=== PATIENT | male | born 1955 | race Caucasian/White ===

== ENCOUNTER 2021-08-21 05:52 | Inpatient (IN) | payer MEDICARE, OTHER, SELFPAY ==
[2021-08-21] VITALS (18 sets, daily range): BP systolic 103–133; BP diastolic 62–83; PULSE 88–120; RESP 18–36; TEMP 35.8–37.2; O2SAT 2–96; BMI 24.3; BMI 23.1
--- NOTE | 2021-08-21 05:48 | ECG_ITS ---
APPROVED REPORT Exam: Resting ECG HR:126 bpm ECG Measurements Heart Rate 126 AXES OH 122 P 67 QRSd 86 QRS 41 QT 320 T 71 QTc 463 Conclusion Sinus tachycardia Right atrial enlargement Borderline ECG Electronically signed by : Getachew Ocasio MD 08/22/2021 21:22:14
--- NOTE | 2021-08-21 05:55 | XR_ITS ---
PROCEDURE INFORMATION: Exam: XR Chest Exam date and time: 08/21/2021 5:55 AM Age: 66 years old Clinical indication: Angina and cough; Additional info: Chest pain TECHNIQUE: Imaging protocol: XR of the chest. Views: 2 views. COMPARISON: CT ANGIO CHEST PE PROTOCOL 08/21/2021 6:52 AM FINDINGS: Lungs: Patchy bilateral airspace opacities. Pleural spaces: No definite pleural effusion or pneumothorax. Heart/Mediastinum: Cardiomediastinal silhouette is within normal limits. Bones/joints: Unremarkable. IMPRESSION: Findings are compatible with multilobar pneumonia.
--- NOTE | 2021-08-21 05:56 | HMH.EDGENADL ---
ED Disposition Clinical Impression: COVID-19 Disposition: Admitted As Inpatient Condition on Discharge: Serious Instructions: DI for COVID-19 (Suspected or Confirmed ), Preventing the Spread of Coronavirus Discharge Instructions Additional Instructions: You have been evaluated for chest pain and pain with inspiration. Found to have COVID-19. Take Tylenol for pain and fever. Follow-up with your primary care doctor. They may be able to refer you for an antibody infusion. Return to the emergency department for new or worsening symptoms, difficulty breathing or other concerns. Referrals: Luis Alberto Castro [Primary Care Provider] - Time of Disposition: 07:59 - Critical Care Critical Care Time: No Attestation: On , the high probability of a clinically significant, sudden or life threatening deterioration of the following system(s) required my full and direct attention, intervention and personal management. The time I documented below is in addition to time spent performing reported procedures but includes the following listed in this critical care notation. Medical Decision Making - Medical Records Medical records reviewed: Yes: I reviewed the patient's medical records. - Scott Inquiry Pt receiving controlled substance: No Vital Signs: 08/21/21 05:52 Temperature 97.9 F Temperature Source Oral Pulse Rate [Right Radial] 120 H Respiratory Rate 21 Blood Pressure [Right Arm] 133/83 Blood Pressure Mean [Right Arm] 99 Blood Pressure Source [Right Arm] Automatic Cuff Blood Pressure Position [Right Arm] Sitting 02 Sat by Pulse Oximetry 92 L Oxygen Delivery Method Nasal Cannula Oxygen Flow Rate (LPM) 2 - Lab Data Lab Results 08/21/21 05:17: WBC 17.1 H, RBC 5.09, Hgb 16.8, Hct 49.1, MCV 96.5 H, MCH 32.9 H, MCHC 34.1, RDW 15.3, Plt Count 89 L, MPV 10.1, Neut % (Auto) 90.6 H, Lymph % (Auto) 5.0 L, [place] % (Auto) 4.1, Eos % (Auto) 0.0 L, Baso % (Auto) 0.3, Neut # (Auto) 15.5 H, Lymph # (Auto) 0.9, [place] # (Auto) 0.7, Eos # (Auto) 0.0, Baso # (Auto) 0.1, Total Counted 100, Neutrophils % (Manual) 81 H, Band Neutrophils % 14.0 H, Lymphocytes % (Manual) 5 L, Platelet Estimate Slight decrease, RBC Morphology Normal, Rouleaux 2+ 08/21/21 05:17: D-Dimer 1.41 H 08/21/21 05:17: Sodium 124 L, Potassium 4.2, Chloride 92 L, Carbon Dioxide 20 L, Anion Gap 16.2 H, BUN 18, Creatinine 0.50 L, Estimated Creat Clear 75, Estimated GFR 166, Est GFR ( Amer) 201, Glucose 149 H, Calcium 8.4, Troponin I 0.01 08/21/21 07:25: SARS-CoV-2 (PCR) Detected A, Influenza A Untype (PCR) Not detected, Influenza Type B (PCR) Not detected Result diagrams: 08/21/21 05:17 08/21/21 05:17 Orders (Tests/Meds): ED MEDICATIONS Discontinued Medications Generic Name Dose Route Start Last Admin Trade Name Freq PRN Reason Stop Dose Admin Dexamethasone Sodium Phosphate 8 mg 08/21/21 08:07 Dexamethasone 4mg/Ml 1ml Vial IV 08/21/21 08:08 ONCE ONE Sodium Chloride 1,000 mls @ 999 mls/hr 08/21/21 06:45 08/21/21 07:28 Sod Chlor 0.9% 1000ml Bag IV 08/21/21 07:45 999 mls/hr .Q1H1M SCOTT Administration Iopamidol 70 ml 08/21/21 07:31 08/21/21 07:33 Iopamidol-370 (76%);100ml Bottle IV 08/21/21 07:32 70 ml ONCE ONE Administration Sodium Chloride 50 ml 08/21/21 07:31 08/21/21 07:32 0.9 % Sodium Chloride 50 Ml Vial IV 08/21/21 07:32 50 ml ONCE ONE Administration Sodium Chloride 10 ml 08/21/21 07:31 08/21/21 07:33 Sodium Chloride 0.9% 10ml Syr (Rad Only) IV 08/21/21 07:32 10 ml ONCE ONE Administration ORDERS Category Date Time Status CT angio chest PE protocol Stat Cat Scan 08/21/21 06:20 Taken XR chest 2V Stat Exams 08/21/21 05:55 Taken Troponin I Q3H Lab 08/21/21 09:00 Ordered Troponin I Q3H Lab 08/21/21 12:00 Ordered - ECG Data Tracing #1 Sinus tachycardia with ventricular rate of 126 bpm. QRS 86, QTc 463. No ST segment elevation. No arrhythmia. Medical Decision Narrativ
[2021-08-21 06:04] LABS: Basophils # 0.1 K/mm3 (0-0.2); Basophils % 0.3 % (0.1-2.0); Hematocrit 49.1 % (42.0-52.0); Hemoglobin 16.8 g/dL (14.1-18.0); Lymphocytes # 0.9 K/mm3 (0.7-4.5); Mean Corpuscular HGB Conc 34.1 g/dL (31.8-35.4); Mean Corpuscular Hemoglobin 32.9 pg (27.0-31.2); Mean Corpuscular Volume 96.5 fl (80-94); Mean Platelet Volume 10.1 fl (7.4-10.4); Monocytes # 0.7 K/mm3 (0.1-1.0); Monocytes % 4.1 % (1.7-9.3); Neutrophils # 15.5 K/mm3 (1.8-7.8); Neutrophils % 90.6 % (37.0-80.0); Platelet Count 89 K/mm3 (142-424); Red Blood Count 5.09 M/mm3 (4.60-6.20); Red Cell Distribution Width 15.3 % (11.5-17.5); White Blood Count 17.1 K/mm3 (4.8-10.8)
[2021-08-21 06:06] LABS: Chloride 92 mmol/L (98-107)
[2021-08-21 06:07] LABS: Potassium 4.2 mmoL/L (3.5-5.1); Sodium 124 mmol/L (136-145)
[2021-08-21 06:09] LABS: Blood Urea Nitrogen 18 mg/dl (9-20); Creatinine Clearance Estimated 75 mL/min (50-200); Estimated Glomerular Filt Rate 166 ml/min (>60)
[2021-08-21 06:10] LABS: Anion Gap 16.2 mEq/L (5-15); Calcium 8.4 mg/dl (8.4-10.2); Carbon Dioxide 20 mmol/L (22.0-30.0); GFR (African American) 201 ML/MIN (>60); Glucose 149 mg/dl (74-100)
[2021-08-21 06:14] LABS: MANUAL DIFFERENTIAL MANUAL DIFFERENTIAL (MANUAL DIFF)
[2021-08-21 06:15] LABS: D-Dimer 1.41 ug/mL (0.0-0.5)
[2021-08-21 06:20] LABS: Lymphocytes % 5 % (10-50); Neutrophils % 81 % (42-76); Platelet Estimate Slight Decrease; RBC Morphology Normal; Rouleaux 2+; Total Cells Counted 100
--- NOTE | 2021-08-21 06:20 | CT_ITS ---
PROCEDURE INFORMATION: Exam: CTA Chest With Contrast Exam date and time: 08/21/2021 6:20 AM Age: 66 years old Clinical indication: Abnormal findings; Abnormal diagnostic tests; Elevated d-dimer; Angina and cough; Additional info: Chest pain, elevated d-dimer TECHNIQUE: Imaging protocol: Computed tomographic angiography of the chest with contrast. 3D rendering (Not supervised by radiologist): MIP and/or 3D reconstructed images were created by the technologist. Radiation optimization: All CT scans at this facility use at least one of these dose optimization techniques: automated exposure control; mA and/or kV adjustment per patient size (includes targeted exams where dose is matched to clinical indication); or iterative reconstruction. Contrast material: ISO 370; Contrast volume: 70 ml; Contrast route: INTRAVENOUS (IV); COMPARISON: No relevant prior studies available. FINDINGS: Pulmonary arteries: No pulmonary emboli identified. Aorta: Unremarkable. No aortic aneurysm. No aortic dissection. Other arteries: Coronary artery calcification. Lungs: Scattered ground-glass and consolidative airspace opacities, most confluent in the lower lobes. Pleural spaces: Unremarkable. No pneumothorax. No pleural effusion. Heart: Unremarkable. No cardiomegaly. No pericardial effusion. Lymph nodes: Mildly prominent mediastinal lymph nodes are likely reactive. Liver: Nodular surface contour of the liver. Subcentimeter hypodensity is seen in segment 5. Spleen: Splenomegaly. Intraperitoneal space: Collateral vessels are seen in the upper abdomen. Bones/joints: Unremarkable. No acute fracture. Soft tissues: Unremarkable. IMPRESSION: 1. No pulmonary emboli identified. 2. Findings are most consistent with multilobar pneumonia. 3. Findings suggest cirrhosis with portal hypertension in the partially visualized upper abdomen. A subcentimeter low-density lesion in hepatic segment 5 is incompletely characterized. Consider further evaluation with nonemergent liver MRI.
[2021-08-21 06:26] LABS: Troponin I 0.01 ng/ml (0.00-0.034)
[2021-08-21 07:34] LABS: Influenza A, PCR Not Detected (NotDetected); Influenza B, PCR Not Detected (NotDetected)
[2021-08-21 07:55] LABS: Coronavirus 19, PCR Detected (NotDetected)
--- NOTE | 2021-08-21 09:11 | PC.NURSE ---
Dr London speaking with Dr Trevino
--- NOTE | 2021-08-21 09:43 | PC.NURSE ---
attempted to call report
--- NOTE | 2021-08-21 09:58 | PC.NURSE ---
report called to floor
--- NOTE | 2021-08-21 10:10 | HMH.PHAINT ---
MEDICATION RECONCILIATION COMPLETED ON PATIENT USING EXTERNAL FILL HISTORY FROM PHARMACY. -EB HANNAH, LENAD
--- NOTE | 2021-08-21 11:57 | PC.NURSE ---
pt noted to have stable vs. stays around 92% on RA and is 94-95% on 2lnc. states he has been soa for over a week. Reports okay appetite but gets winded easily. states he lives alone and is retired. Denies any drug or etoh abuse. independentwith adls but has generalized weakness.
[2021-08-21 12:10] LABS: Chloride 97 mmol/L (98-107); Potassium 4.1 mmoL/L (3.5-5.1); Sodium 126 mmol/L (136-145)
[2021-08-21 12:13] LABS: Alanine Aminotransferase 39 U/L (12-78); Albumin Level 2.4 g/dl (3.5-5.0); Albumin/Globulin Ratio 0.6 (1.1-1.8); Alkaline Phosphatase 131 U/L (38-126); Anion Gap 11.1 mEq/L (5-15); Aspartate Amino Transferase 97 U/L (17-59); Bilirubin,Total 4.8 mg/dl (0.2-1.3); Blood Urea Nitrogen 18 mg/dl (9-20); Calcium 7.8 mg/dl (8.4-10.2); Carbon Dioxide 22 mmol/L (22.0-30.0); Creatinine Clearance Estimated 71 mL/min (50-200); Estimated Glomerular Filt Rate 166 ml/min (>60); GFR (African American) 201 ML/MIN (>60); Globulin 4.2 g/dL (1.3-3.2); Glucose 111 mg/dl (74-100); Total Protein,Serum 6.6 g/dl (6.3-8.2)
[2021-08-21 12:17] LABS: C-Reactive Protein 124.5 mg/L (0-4)
--- NOTE | 2021-08-21 13:26 | HMH.HP ---
*Admission Date: 08/21/21 *Chief complaint: Left-sided chest pain *History of present illness: 66-year-old male presented to the emergency department via EMS over concerns of left-sided chest pain at home very early this morning. Patient admits he was afraid he was having a heart attack. He presented to the ER and underwent work-up with evidence of viral pneumonia on chest CT scan raising suspicion for COVID-19 pneumonia. Patient admits to a few days of URI symptoms such as sore throat and altered taste. He denies fevers, chills, body aches. SARS-CoV-2 testing was positive. Patient had room air sats in the low 90s at rest and with ambulation with decreased to the 70s. He was described as having tachypnea in the emergency department and decision was made to admit him for observation and supplemental oxygen support. Since admission patient has been started on Remdesivir. Due to elevated white blood cell count he was also been started on Rocephin and azithromycin to cover the possibility of bacterial pneumonia. [facility] History I have reviewed the patient's past medical history: Yes Medical History: Reports:: Diabetes Mellitus Type 2 Denies:: Cancer, Hepatitis, MRSA *Have you ever received a pneumonia vaccine?: Yes *Have you received a flu vaccine this season?: Yes Other Medical History: Denies: Liver Disease Comment:: Patient denies alcoholism or pre-existing liver disease Other Surgeries: Yes: No Previous Surgery Amputation: No - *Social History Last grade of school completed: 7th or 8th Smoking Status: Current every day smoker Tobacco Type: cigarettes # Packs/Day (cigarettes): 1 Alcohol Intake: never *Occupational Status:: retired Household Members: none *Travel in the last 8 weeks: None Family Hx:: Diabetes, Heart Attack Review of Systems - Review of Systems Review of systems:: pertinent systems reviewed and negative unless documented below - *Neurologic Denies headache(s), Denies weakness Meds Home Medications Medication Instructions Recorded Confirmed Type Ergocalciferol (Vitamin D2) 50,000 unit PO WEEKLY 08/21/21 08/21/21 History [Vitamin D2] Insulin Degludec [Tresiba 40 units SQ HS 08/21/21 08/21/21 History Flextouch U-100] Metformin HCl [Metformin 1000mg 1,000 mg PO BIDWMEAL 08/21/21 08/21/21 History Tablets] Pioglitazone HCl [Actos] 30 mg PO DAILY 08/21/21 08/21/21 History lisinopriL [Zestril 20mg tab] 20 mg PO DAILY 08/21/21 08/21/21 History Allergies Allergy/AdvReac Type Severity Reaction Status Date / Time Penicillins Allergy Verified 08/21/21 05:59 Exam Vital signs and Labs for Last 24 Hours: Temp Pulse Resp BP Pulse Ox 98.3 F 88 18 123/67 2 L 08/21/21 12:00 08/21/21 12:00 08/21/21 12:00 08/21/21 12:00 08/21/21 12:00 Laboratory Results - last 24 hr 08/21/21 05:17: WBC 17.1 H, RBC 5.09, Hgb 16.8, Hct 49.1, MCV 96.5 H, MCH 32.9 H, MCHC 34.1, RDW 15.3, Plt Count 89 L, MPV 10.1, Neut % (Auto) 90.6 H, Lymph % (Auto) 5.0 L, [place] % (Auto) 4.1, Eos % (Auto) 0.0 L, Baso % (Auto) 0.3, Neut # (Auto) 15.5 H, Lymph # (Auto) 0.9, [place] # (Auto) 0.7, Eos # (Auto) 0.0, Baso # (Auto) 0.1, Total Counted 100, Neutrophils % (Manual) 81 H, Band Neutrophils % 14.0 H, Lymphocytes % (Manual) 5 L, Platelet Estimate Slight decrease, RBC Morphology Normal, Rouleaux 2+ 08/21/21 05:17: D-Dimer 1.41 H 08/21/21 05:17: Sodium 124 L, Potassium 4.2, Chloride 92 L, Carbon Dioxide 20 L, Anion Gap 16.2 H, BUN 18, Creatinine 0.50 L, Estimated Creat Clear 75, Estimated GFR 166, Est GFR ( Amer) 201, Glucose 149 H, Calcium 8.4, Troponin I 0.01 08/21/21 07:25: SARS-CoV-2 (PCR) Detected A, Influenza A Untype (PCR) Not detected, Influenza Type B (PCR) Not detected 08/21/21 12:00: Sodium 126 L, Potassium 4.1, Chloride 97 L, Carbon Dioxide 22, Anion Gap 11.1, BUN 18, Creatinine 0.50 L, Estimated Creat Clear 71, Estimated GFR 166, Est GFR ( Amer) 201, Glucose 111 H D, Calcium 7.8 L, Total Bilirubin 4.8
--- NOTE | 2021-08-21 14:53 | PC.NURSE ---
pt got up to bathroomindependently ad washed himself off. He tolerated it well. Generalized weakness noted but overall steady gait
--- NOTE | 2021-08-21 16:07 | PC.NURSE ---
Received report from PRAKASH Vallejo at this time on pt.
--- NOTE | 2021-08-21 19:02 | PC.NURSE ---
No acute changes with pt this afternoon. CB in reach.
[2021-08-21 20:46] LABS: POC Glucose,Bedside 198 (70-110)
[2021-08-22] VITALS (10 sets, daily range): BP systolic 107–149; BP diastolic 62–85; PULSE 71–104; RESP 18–28; TEMP 36–36.8; O2SAT 89–96; BMI 23.5; BMI 23.3
--- NOTE | 2021-08-22 03:19 | PC.NURSE ---
No acute changes t/o shift. Pt remains on 2L-NC with O2 saturation >90%. Pt denies pain t/o shift. Pt has been using the urinal and bedside commode independently. VSS, call light within reach, will continue to monitor.
--- NOTE | 2021-08-22 06:47 | HMH.ACPN2 ---
Internal Medicine - PN: Subj *Date: 08/22/21 *Time: 06:47 Interval history: No acute events overnight. O2 sats are stable on 2 L. Patient reports improvement in appetite Exam Vital signs and Labs for Last 24 Hours: Temp Pulse Resp BP Pulse Ox 98.2 F 85 20 120/70 92 L 08/22/21 04:00 08/22/21 04:00 08/22/21 04:00 08/22/21 04:00 08/22/21 04:00 Laboratory Results - last 24 hr 08/21/21 07:25: SARS-CoV-2 (PCR) Detected A, Influenza A Untype (PCR) Not detected, Influenza Type B (PCR) Not detected 08/21/21 12:00: Sodium 126 L, Potassium 4.1, Chloride 97 L, Carbon Dioxide 22, Anion Gap 11.1, BUN 18, Creatinine 0.50 L, Estimated Creat Clear 71, Estimated GFR 166, Est GFR ( Amer) 201, Glucose 111 H D, Calcium 7.8 L, Total Bilirubin 4.8 H, AST 97 H, ALT 39, Alkaline Phosphatase 131 H, Total Protein 6.6, Albumin 2.4 L, Globulin 4.2 H, Albumin/Globulin Ratio 0.6 L 08/21/21 12:00: C-Reactive Protein 124.5 H 08/21/21 20:32: POC Glucose 198 H I & O for Last 24 hours: Intake & Output 08/19/21 08/20/21 08/21/21 08/22/21 11:59 11:59 11:59 11:59 Output Total 300 / 300 Balance -300 / -300 Weight 152 lb 2 oz 155 lb Narrative: Patient is more awake and alert than yesterday. Lungs have rhonchi and rales. Heart has a regular rate and rhythm. Abdomen is soft, nontender, nondistended Assessment and Plan (1) Viral pneumonia Status: Acute Category: Medical Code(s): J12.9 - Viral pneumonia, unspecified (2) Diabetes mellitus type 2 in nonobese Status: Acute Category: Medical Code(s): E11.9 - Type 2 diabetes mellitus without complications (3) COVID-19 Status: Acute Category: Medical Code(s): U07.1 - COVID-19 (4) Cigarette smoker Status: Acute Category: Social Hx Code(s): F17.210 - Nicotine dependence, cigarettes, uncomplicated (5) Hyponatremia Status: Acute Category: Medical Code(s): E87.1 - Hypo-osmolality and hyponatremia (6) Thrombocytopenia Status: Acute Category: Medical Code(s): D69.6 - Thrombocytopenia, unspecified - Assessment and plan all Dx Assessment and Plan for all problems:: 1. Continue Remdesivir dexamethasone for COVID-19 pneumonia with respiratory failure 2. Continue Levaquin with repeat CBC this morning 3. Monitor hypoxia closely. If patient remains stable on 2 to 3 L over the next 24 hours consideration will be given to discharge home with close outpatient follow-up
[2021-08-22 06:54] LABS: Basophils % 0.3 % (0.1-2.0); Hematocrit 41.5 % (42.0-52.0); Hemoglobin 14.3 g/dL (14.1-18.0); Lymphocytes # 0.4 K/mm3 (0.7-4.5); Lymphocytes % 5.2 % (10-50); Mean Corpuscular HGB Conc 34.5 g/dL (31.8-35.4); Mean Corpuscular Volume 95.5 fl (80-94); Mean Platelet Volume 8.4 fl (7.4-10.4); Monocytes # 0.4 K/mm3 (0.1-1.0); Monocytes % 4.9 % (1.7-9.3); Neutrophils # 7.3 K/mm3 (1.8-7.8); Neutrophils % 89.6 % (37.0-80.0); Platelet Count 77 K/mm3 (142-424); Red Blood Count 4.35 M/mm3 (4.60-6.20); Red Cell Distribution Width 15.2 % (11.5-17.5); White Blood Count 8.2 K/mm3 (4.8-10.8)
[2021-08-22 07:01] LABS: MANUAL DIFFERENTIAL MANUAL DIFFERENTIAL (MANUAL DIFF)
[2021-08-22 07:17] LABS: Alanine Aminotransferase 34 U/L (12-78); Albumin Level 2.2 g/dl (3.5-5.0); Albumin/Globulin Ratio 0.6 (1.1-1.8); Alkaline Phosphatase 122 U/L (38-126); Anion Gap 9.1 mEq/L (5-15); Aspartate Amino Transferase 81 U/L (17-59); Bilirubin,Total 3.5 mg/dl (0.2-1.3); Blood Urea Nitrogen 18 mg/dl (9-20); Calcium 7.9 mg/dl (8.4-10.2); Carbon Dioxide 23 mmol/L (22.0-30.0); Chloride 101 mmol/L (98-107); Creatinine Clearance Estimated 72 mL/min (50-200); Estimated Glomerular Filt Rate 215 ml/min (>60); GFR (African American) 260 ML/MIN (>60); Glucose 144 mg/dl (74-100); Potassium 4.1 mmoL/L (3.5-5.1); Sodium 129 mmol/L (136-145); Total Protein,Serum 6.2 g/dl (6.3-8.2)
[2021-08-22 07:32] LABS: C-Reactive Protein 124.4 mg/L (0-4)
[2021-08-22 10:31] LABS: Anisocytosis 1+; Hypochromasia 1+; Lymphocytes % 4 % (10-50); Macrocytosis 1+; Monocytes % 5 % (2-9); Neutrophils % 91 % (42-76); Platelet Estimate Normal; Total Cells Counted 100
--- NOTE | 2021-08-22 11:39 | P.CONPHA_ITS ---
[facility] Pharmacy VTE Monitoring - Patient Demographics Admission date: 08/21/21 Report Date: 08/22/21 Time: 11:39 Allergies/Adverse Reactions: Patient Allergies Penicillins Allergy (Verified 08/21/21 05:59) Height: 1.73 m Weight: 70.307 kg Patient Problems: Current Active Problems COVID-19 (Acute) Viral pneumonia (Acute) Diabetes mellitus type 2 in nonobese (Acute) Cigarette smoker (Acute) Hyponatremia (Acute) Thrombocytopenia (Acute) - VTE Risk Labs: VTE Related Lab Results Hgb 14.3 g/dL (14.1-18.0) 08/22/21 06:32 Hct 41.5 % (42.0-52.0) L 08/22/21 06:32 Plt Count 77 K/mm3 (142-424) L 08/22/21 06:32 BUN 18 mg/dl (9-20) 08/22/21 06:32 Creatinine 0.40 mg/dl (0.66-1.25) L 08/22/21 06:32 Estimated Creat Clear 72 mL/min (50-200) 08/22/21 06:32 Was VTE Risk Assessment Performed: No VTE Risk Level: Low Risk - Prophylaxis VTE Prophylaxis Ordered?: Yes Types of VTE Prophylaxis: TEDS Thigh High, Pharmacological Location of Applied Device: Bilateral Lower Extremeties Pharmacologic Type: Other (XARELTO)
[2021-08-22 11:57] LABS: POC Glucose,Bedside 134 (70-110)
--- NOTE | 2021-08-22 16:27 | PC.NURSE ---
pt has rested majority of this shift, but has became increasingly agitated as the evening has progressed. pt has lost IV access and after x1 unsuccessful attempt, pt has asked to take a break , will reassess shortly. ciwa scores 0 @ 0800 and 1200 and 4 at 1600. PRN ativan administered at this time. No other acute changes or complaints, will continue to monitor.
[2021-08-22 20:27] LABS: POC Glucose,Bedside 205 (70-110)
[2021-08-23] VITALS (8 sets, daily range): BP systolic 117–135; BP diastolic 64–75; PULSE 68–96; RESP 16–19; TEMP 36.4–36.9; O2SAT 91–96; BMI 22.9
--- NOTE | 2021-08-23 03:09 | PC.NURSE ---
pt A&O. rested majority of this shift. no acute changes. O2 has remained stable on 2L-NC. No c/o pain or discomfort voiced. Refused to allow nurse to attempt IV access. Resting in bed at this time.
[2021-08-23 07:11] LABS: Alanine Aminotransferase 33 U/L (12-78); Albumin Level 2.3 g/dl (3.5-5.0); Albumin/Globulin Ratio 0.5 (1.1-1.8); Alkaline Phosphatase 125 U/L (38-126); Aspartate Amino Transferase 77 U/L (17-59); Bilirubin,Total 2.7 mg/dl (0.2-1.3); Blood Urea Nitrogen 19 mg/dl (9-20); Calcium 8.1 mg/dl (8.4-10.2); Carbon Dioxide 24 mmol/L (22.0-30.0); Chloride 102 mmol/L (98-107); Creatinine Clearance Estimated 71 mL/min (50-200); Estimated Glomerular Filt Rate 215 ml/min (>60); GFR (African American) 260 ML/MIN (>60); Globulin 4.2 g/dL (1.3-3.2); Glucose 136 mg/dl (74-100); Sodium 130 mmol/L (136-145); Total Protein,Serum 6.5 g/dl (6.3-8.2)
--- NOTE | 2021-08-23 07:36 | HMH.ACPN2 ---
Internal Medicine - PN: Subj *Date: 08/23/21 *Time: 07:36 Interval history: Patient has no new complaints. He denies shortness of breath. Exam Vital signs and Labs for Last 24 Hours: Temp Pulse Resp BP Pulse Ox 97.9 F 77 16 135/67 92 L 08/23/21 04:00 08/23/21 04:00 08/23/21 04:00 08/23/21 04:00 08/23/21 05:43 Laboratory Results - last 24 hr 08/22/21 05:03: POC Glucose 134 H 08/22/21 06:32: Total Counted 100, Neutrophils % (Manual) 91 H, Lymphocytes % (Manual) 4 L, Monocytes % (Manual) 5, Platelet Estimate Normal, Hypochromasia 1+, Anisocytosis 1+, Macrocytosis 1+ 08/22/21 06:32: Sodium 129 L, Potassium 4.1, Chloride 101, Carbon Dioxide 23, Anion Gap 9.1, BUN 18, Creatinine 0.40 L, Estimated Creat Clear 72, Estimated GFR 215, Est GFR ( Amer) 260 D, Glucose 144 H D, Calcium 7.9 L, Total Bilirubin 3.5 H, AST 81 H, ALT 34, Alkaline Phosphatase 122, C-Reactive Protein 124.4 H, Total Protein 6.2 L, Albumin 2.2 L, Globulin 4.0 H, Albumin/Globulin Ratio 0.6 L 08/22/21 20:16: POC Glucose 205 H 08/23/21 06:17: Sodium 130 L, Potassium 4.0, Chloride 102, Carbon Dioxide 24, Anion Gap 8.0, BUN 19, Creatinine 0.40 L, Estimated Creat Clear 71, Estimated GFR 215, Est GFR ( Amer) 260, Glucose 136 H, Calcium 8.1 L, Total Bilirubin 2.7 H, AST 77 H, ALT 33, Alkaline Phosphatase 125, Total Protein 6.5, Albumin 2.3 L, Globulin 4.2 H, Albumin/Globulin Ratio 0.5 L I & O for Last 24 hours: Intake & Output 08/20/21 08/21/21 08/22/21 08/23/21 11:59 11:59 11:59 11:59 Intake Total 720 / 720 1080 / 1080 Output Total 600 / 600 1200 / 1200 Balance 120 / 120 -120 / -120 Weight 152 lb 2 oz 155 lb 151 lb 9 oz Narrative: Patient looks weak compared to yesterday. Has increased respiratory rate this morning. Lungs have rales that are unchanged from admission. Heart has a regular rate and rhythm. Abdomen is soft and nontender Assessment and Plan (1) Viral pneumonia Status: Acute Category: Medical Code(s): J12.9 - Viral pneumonia, unspecified (2) Diabetes mellitus type 2 in nonobese Status: Acute Category: Medical Code(s): E11.9 - Type 2 diabetes mellitus without complications (3) COVID-19 Status: Acute Category: Medical Code(s): U07.1 - COVID-19 (4) Cigarette smoker Status: Acute Category: Social Hx Code(s): F17.210 - Nicotine dependence, cigarettes, uncomplicated (5) Hyponatremia Status: Acute Category: Medical Code(s): E87.1 - Hypo-osmolality and hyponatremia (6) Thrombocytopenia Status: Acute Category: Medical Code(s): D69.6 - Thrombocytopenia, unspecified - Assessment and plan all Dx Assessment and Plan for all problems:: 1. Continue Remdesivir and dexamethasone 2. Supplemental oxygen to keep O2 sats above 90% 3. PT eval today
[2021-08-23 17:33] LABS: POC Glucose,Bedside 145 (70-110)
--- NOTE | 2021-08-23 18:45 | PC.NURSE ---
Patient was initially non-compliant refusing IV access at beginning of shift. Notified and provider stated to encourage patient to accept treatment at the hospital or the only other option was to be discharged home with oxygen. Patient became more compliant, allowed RN to place IV. IV medications administered later in day, but all antibiotics were able to be given. Pt experienced brief instance of diarrhea during the shift, and was given PRN zofran. No further orders at this time. Will continue to monitor
[2021-08-23 21:53] LABS: POC Glucose,Bedside 241 (70-110)
--- NOTE | 2021-08-24 03:15 | PC.NURSE ---
No acute changes t/o shift. Pt remains on 3L NC with O2 saturation >90%. Pt denies any pain t/o shift. No BM's this shift. Pt is using the urinal independently. VSS, call light within reach, will continue to monitor.
[2021-08-24 04:00] VITALS: BP 118/62; PULSE 60; RESP 18; TEMP 36.6; O2SAT 94
[2021-08-24 05:00] VITALS: BMI 22.9
[2021-08-24 06:47] VITALS: O2SAT 93
--- NOTE | 2021-08-24 06:58 | HMH.DCSUM ---
General - General Admission date:: 08/21/21 Discharge date: 08/24/21 HPI HPI: 66-year-old male presented to the emergency department via EMS over concerns of left-sided chest pain at home very early this morning. Patient admits he was afraid he was having a heart attack. He presented to the ER and underwent work-up with evidence of viral pneumonia on chest CT scan raising suspicion for COVID-19 pneumonia. Patient admits to a few days of URI symptoms such as sore throat and altered taste. He denies fevers, chills, body aches. SARS-CoV-2 testing was positive. Patient had room air sats in the low 90s at rest and with ambulation with decreased to the 70s. He was described as having tachypnea in the emergency department and decision was made to admit him for observation and supplemental oxygen support. Since admission patient has been started on Remdesivir. Due to elevated white blood cell count he was also been started on Rocephin and azithromycin to cover the possibility of bacterial pneumonia. Hospital Course Hospital Course: Patient was admitted with diagnosis of mild acute respiratory failure from COVID-19 pneumonia. Patient was admitted and started on Remdesivir and dexamethasone. Patient remained stable during hospitalization on low flow nasal cannula at 2 to 3 L/min which maintained his O2 sats above 90%. Patient was able to ambulate independently. Lung exam had bibasilar rales. After 72-hour admission with patient remaining stable and no signs of decline patient was discharged home. He will need home oxygen at 3 L/min. A long discussion was had with the patient regarding the possibility of future decline should he return home and began smoking. Patient will be discharged home with continued steroids and VTE prophylaxis with Xarelto. Patient will follow up with his primary care physician in 48 hours. Objective Vital signs: Temp Pulse Resp BP Pulse Ox 98 F 60 18 118/62 93 L 08/24/21 04:00 08/24/21 04:00 08/24/21 04:00 08/24/21 04:00 08/24/21 06:47 no acute distress, disheveled - *Routine Respiratory Exam Present: CTA bilaterally, rales - *Routine Cardiovascular Exam Present: RRR - *Routine Abdominal Exam Present: soft, normoactive bowel sounds. Absent: tenderness Results Labs on day of discharge: Labs from last 24 hours 08/23/21 08/23/21 08/23/21 21:24 17:26 06:17 Sodium 130 L Potassium 4.0 Chloride 102 Carbon Dioxide 24 Anion Gap 8.0 BUN 19 Creatinine 0.40 L Estimated Creat Clear 71 Estimated GFR 215 Est GFR ( Amer) 260 Glucose 136 H POC Glucose 241 H 145 H Calcium 8.1 L Total Bilirubin 2.7 H AST 77 H ALT 33 Alkaline Phosphatase 125 Total Protein 6.5 Albumin 2.3 L Globulin 4.2 H Albumin/Globulin Ratio 0.5 L DS: Diagnosis - Discharge Diagnosis (1) Viral pneumonia Status: Acute (2) Diabetes mellitus type 2 in nonobese Status: Acute (3) COVID-19 Status: Acute (4) Cigarette smoker Status: Acute (5) Hyponatremia Status: Acute (6) Thrombocytopenia Status: Acute (7) Acute respiratory failure Status: Acute Discharge Plan - Patient Discharge Instructions ACTIVITY: Continue current activity DIET: continue same diet Patient Instructions: Carbohydrate-Counting Diet, DI for COVID-19 (Suspected or Confirmed ), Nutrition and Hydration: [employer] in the Fight Against COVID-19 - Follow up Plan Follow up with: Luis Alberto Castro [Primary Care Provider] - 2 days Disposition: Home, Self-Care Condition at discharge:: Stable Home Medications: Home Medications Medication Instructions Recorded Confirmed Type Ergocalciferol (Vitamin D2) 50,000 unit PO WEEKLY 08/21/21 08/21/21 History [Vitamin D2] Insulin Degludec [Tresiba 40 units SQ HS 08/21/21 08/21/21 History Flextouch U-100] Metformin HCl [Metformin 1000mg 1,000 mg PO BIDWMEAL 08/21
[2021-08-24 07:12] LABS: Sodium 130 mmol/L (136-145)
[2021-08-24 07:13] LABS: Chloride 101 mmol/L (98-107); Potassium 3.7 mmoL/L (3.5-5.1)
[2021-08-24 07:15] LABS: Alanine Aminotransferase 31 U/L (12-78); Alkaline Phosphatase 116 U/L (38-126); Aspartate Amino Transferase 72 U/L (17-59); Bilirubin,Total 1.9 mg/dl (0.2-1.3); Blood Urea Nitrogen 18 mg/dl (9-20); Creatinine Clearance Estimated 71 mL/min (50-200); Estimated Glomerular Filt Rate 215 ml/min (>60); GFR (African American) 260 ML/MIN (>60)
[2021-08-24 07:16] LABS: Albumin Level 2.1 g/dl (3.5-5.0); Albumin/Globulin Ratio 0.5 (1.1-1.8); Anion Gap 7.7 mEq/L (5-15); Calcium 7.8 mg/dl (8.4-10.2); Carbon Dioxide 25 mmol/L (22.0-30.0); Glucose 97 mg/dl (74-100); Total Protein,Serum 6.1 g/dl (6.3-8.2)
--- NOTE | 2021-08-24 07:21 | PC.NURSE ---
MR [place] ROOM AIR SAT IS 86%. HE WOULD BENEFIT FROM HOME O2 UPON D/C
[2021-08-24 07:22] VITALS: O2SAT 86
[2021-08-24 08:00] VITALS: BP 122/65; PULSE 79; RESP 18; RESP 19; TEMP 37; O2SAT 94; O2SAT 95
--- NOTE | 2021-08-24 08:26 | HMH.ACPN ---
Internal Medicine - PN: Subj *Date: 08/24/21 *Time: 08:26 Exam Vital signs and Labs for Last 24 Hours: Temp Pulse Resp BP Pulse Ox 98 F 60 18 118/62 86 L 08/24/21 04:00 08/24/21 04:00 08/24/21 04:00 08/24/21 04:00 08/24/21 07:22 Laboratory Results - last 24 hr 08/23/21 17:26: POC Glucose 145 H 08/23/21 21:24: POC Glucose 241 H 08/24/21 06:22: Sodium 130 L, Potassium 3.7, Chloride 101, Carbon Dioxide 25, Anion Gap 7.7, BUN 18, Creatinine 0.40 L, Estimated Creat Clear 71, Estimated GFR 215, Est GFR ( Amer) 260, Glucose 97, Calcium 7.8 L, Total Bilirubin 1.9 H, AST 72 H, ALT 31, Alkaline Phosphatase 116, Total Protein 6.1 L, Albumin 2.1 L, Globulin 4.0 H, Albumin/Globulin Ratio 0.5 L I & O for Last 24 hours: Intake & Output 08/21/21 08/22/21 08/23/21 08/24/21 23:59 23:59 23:59 23:59 Intake Total 1800 / 1800 360 / 360 Output Total 1600 / 1600 1175 / 1475 300 / 300 Balance 200 / 200 -815 / -1115 -300 / -300 Weight 69.003 kg 70 kg 68.748 kg 68.748 kg Assessment and Plan (1) Viral pneumonia Status: Acute Category: Medical Code(s): J12.9 - Viral pneumonia, unspecified (2) Diabetes mellitus type 2 in nonobese Status: Acute Category: Medical Code(s): E11.9 - Type 2 diabetes mellitus without complications (3) COVID-19 Status: Acute Category: Medical Code(s): U07.1 - COVID-19 (4) Cigarette smoker Status: Acute Category: Social Hx Code(s): F17.210 - Nicotine dependence, cigarettes, uncomplicated (5) Hyponatremia Status: Acute Category: Medical Code(s): E87.1 - Hypo-osmolality and hyponatremia (6) Thrombocytopenia Status: Acute Category: Medical Code(s): D69.6 - Thrombocytopenia, unspecified (7) Acute respiratory failure Status: Acute Category: Medical Code(s): J96.00 - Acute respiratory failure, unspecified whether with hypoxia or hypercapnia The patient's infection will respond to the chosen ABx?: Yes Is the patient receiving the right drug, dose, and route?: Yes Could a more targeted ABx be ordered?: No (PATIENT AFEBRILE, WBC DECREASED)
--- NOTE | 2021-08-24 09:54 | PC.NURSE ---
asssiting with charting vitals and srna checks at this time.
--- NOTE | 2021-08-24 10:04 | SW/DCPLANNER ---
Addendum entered by Malia Muñoz 08/26/21 13:09: RECEIVED A CALL FROM [facility] AFTER LETTING THEM KNOW THAT [facility] STATED THEY COULD NOT SEE HIM BECAUSE HE HAS A [facility] ADDR[facility]... [facility] CAN NOT TAKE HIM SO I HAVE SENT REFERRAL TO OUR LOCAL [facility]... Addendum entered by Malia Muñoz 08/26/21 10:14: HAVE HAD A HORRIBLE TIME WITH TRYING TO GET [facility] THIS PATIENT.. [facility] CALLED AND SAID THEY DON'T SERVICE THIS AREA BUT HE HAS A [place] ADDRESS BUT LIVES IN [facility].. I HAVE CALLED BACK AND EXPLAINED THAT TO [facility] AND ASKED THEM TO REEVALUATE THE REFERRAL AND SEE IF THEY CAN MAKE CONTACT TODAY WITH PATIENT.. Addendum entered by Malia Muñoz 08/25/21 12:58: [facility] ARE OUT OF NETWORK AND REFERRAL WAS SENT TO [facility].... Addendum entered by Malia Muñoz 08/24/21 11:42: RECEIVED A CALL FROM [facility] AND THEY CAN'T TAKE HIM BECAUSE THEY DON'T SERVICE [facility]... [facility]ED [facility] AND THEY DO SERVICES THAT AREA AND WILL SEE THE PATIENT... Original Note: SET UP HOME HEALTH [facility] FOR THIS PATIENT WITH [facility] WHO ACCEPTS COVID PATIENT THAT ARE RECENTLY DIAGNOSISED.. PATIENT ALSO HAD AN ORDER FOR HOME 02.. THIS WAS SET UP WITH [facility]. A PORTABLE TANK WILL BE DELIVERED TO HIS ROOM PRIOR TO HIS DISCHARGE...[facility] WILL BE CALLING PATIENT LATER TODAY OR IN THE AM TO START SERVICES...
[2021-08-24 10:30] VITALS: O2SAT 89
[2021-08-24 12:00] VITALS: BP 139/78; PULSE 107; RESP 20; TEMP 36.7; O2SAT 99
== END 2021-08-24 16:20 | disposition home or self-care (01) | DRG 177 ==
LOC: ER 08:09 → 2ND 10:06
PROVIDERS: Emergency Medicine; Admitting Provider Family Medicine; Emergency Provider Emergency Medicine; PCP Family Medicine; Visit Provider Family Medicine
DX: U07.1 COVID-19 (principal); J12.82 Pneumonia due to coronavirus disease 2019; J15.9 Unspecified bacterial pneumonia; J96.01 Acute respiratory failure with hypoxia; E87.1 Hypo-osmolality and hyponatremia; E11.9 Type 2 diabetes mellitus without complications; F17.210 Nicotine dependence, cigarettes, uncomplicated; D69.6 Thrombocytopenia, unspecified; Z79.84 Long term (current) use of oral hypoglycemic drugs
CPT/HCPCS: 36415; 71046; 71275; 80048; 80053; 82962; 84484; 85007; 85025; 85378; 86140; 93005; 94640; 94760; 96374; 99284; C9803; J0456; Q9967; U0003; U0005

== ENCOUNTER 2023-03-10 02:18 | Emergency (ER) | payer MEDICARE, OTHER, SELFPAY ==
[2023-03-10 02:18] VITALS: BP 168/88; PULSE 98; RESP 21; TEMP 36.6; O2SAT 97; BMI 22.3
--- NOTE | 2023-03-10 02:20 | PC.NURSE ---
Pt brought in by POV by a neighbor (Bart Sierra) d/t being Confused and not talking right . Staff went to assist getting patient out of the car, however pt refused and stated I'm not gonna. God-dammit don't touch me . He was slapping away any offered assistance from staff or pt's neighbor. We attempted to obtain a FS while trying to coax pt from vehicle however pt now starting to push at staff. PD called for assistance. On his own, pt attempting to exit the car, and I assisted pt to an awaiting stretcher to bring inside the ER. hot dip plating supervisor aware of situation and at beside currently. The neighbor gave me a purple backpack stating it contained medications, clothes, and not sure what else . Bart left his phone number ad the phone number for pt's roommate, Jack Jimmy ([phone]).
[2023-03-10 02:32] VITALS: BMI 21.9
--- NOTE | 2023-03-10 02:34 | XR_ITS ---
PROCEDURE INFORMATION: Exam: XR Chest Exam date and time: 03/10/2023 3:03 AM Age: 67 years old Clinical indication: Other: AMS TECHNIQUE: Imaging protocol: Radiologic exam of the chest. Views: 1 view. COMPARISON: CR XR CHEST 2V 08/21/2021 7:02 AM FINDINGS: Lungs: Unremarkable. No consolidation. There is no focal mass. Pleural spaces: Unremarkable. No pleural effusion. No pneumothorax. Heart/Mediastinum: Unremarkable. No cardiomegaly. Bones/joints: Unremarkable. There is no acute fracture present. IMPRESSION: No evidence for acute cardiac or pulmonary process.
--- NOTE | 2023-03-10 02:34 | CT_ITS ---
PROCEDURE INFORMATION: Exam: CT Head Without Contrast Exam date and time: 03/10/2023 2:46 AM Age: 67 years old Clinical indication: Stroke-like symptoms; Altered mental status/memory loss; Additional info: AMS TECHNIQUE: Imaging protocol: Computed tomography of the head without contrast. Radiation optimization: All CT scans at this facility use at least one of these dose optimization techniques: automated exposure control; mA and/or kV adjustment per patient size (includes targeted exams where dose is matched to clinical indication); or iterative reconstruction. Other technique: STROKE PROTOCOL was implemented. REPORTING DATA: Count of CT and Cardiac NM exams in prior 12 months: This patient has received 0 known CTs and 0 known cardiac nuclear medicine studies in the 12 months prior to the current study. COMPARISON: No relevant prior studies available. FINDINGS: Brain: There is a moderate amount of periventricular white matter disease. 1 cm area of decreased attenuation of the right sided midline jorge. Decreased attenuation left sided occipital lobe. Remaining arredondo-white matter junction is intact. No area of hemorrhage. No focal mass. Cerebral ventricles: No ventriculomegaly. Paranasal sinuses: Visualized sinuses are unremarkable. No fluid levels. Mastoid air cells: Visualized mastoid air cells are well aerated. Bones/joints: Unremarkable. No acute fracture. Soft tissues: Unremarkable. IMPRESSION: 1. 1 cm age indeterminate right sided pontine infarction. 2. Moderate periventricular white matter disease. 3. Decreased attenuation left sided occipital lobe. This may be artifactual in nature but is concerning for a left [employer] territory infarction. 4. The remainder of the examination is unremarkable. ASSESSMENT: ASPECTS (Nicole Stroke Program Early CT Score) is 10.
[2023-03-10 02:38] LABS: Basophils % 0.6 % (0.1-2.0); Eosinophils # 0.1 K/mm3 (0.0-0.4); Eosinophils % 1.9 % (0.1-12.0); Lymphocytes # 2.1 K/mm3 (0.7-4.5); Lymphocytes % 32.3 % (10-50); Mean Corpuscular HGB Conc 33.3 g/dL (31.8-35.4); Mean Corpuscular Hemoglobin 32.4 pg (27.0-31.2); Mean Corpuscular Volume 97.4 fl (80-94); Mean Platelet Volume 8.1 fl (7.4-10.4); Monocytes # 0.4 K/mm3 (0.1-1.0); Monocytes % 6.6 % (1.7-9.3); Neutrophils # 3.8 K/mm3 (1.8-7.8); Neutrophils % 58.6 % (37.0-80.0); Platelet Count 97 K/mm3 (142-424); Red Blood Count 4.31 M/mm3 (4.60-6.20); Red Cell Distribution Width 15.4 % (11.5-17.5); White Blood Count 6.5 K/mm3 (4.8-10.8)
[2023-03-10 02:42] LABS: Chloride 109 mmol/L (98-107); Potassium 3.7 mmoL/L (3.5-5.1); Sodium 141 mmol/L (136-145)
[2023-03-10 02:45] LABS: Alanine Aminotransferase 94 U/L (12-78); Albumin/Globulin Ratio 0.5 (1.1-1.8); Alkaline Phosphatase 175 U/L (38-126); Anion Gap 8.7 mEq/L (5-15); Aspartate Amino Transferase 166 U/L (17-59); Bilirubin,Total 1.6 mg/dl (0.2-1.3); Blood Urea Nitrogen 17 mg/dl (9-20); Calcium 8.1 mg/dl (8.4-10.2); Carbon Dioxide 27 mmol/L (22.0-30.0); Creatinine Clearance Estimated 64 mL/min (50-200); Estimated Glomerular Filt Rate 166 ml/min (>60); GFR (African American) 201 ML/MIN (>60); Globulin 6.1 g/dL (1.3-3.2); Glucose 102 mg/dl (74-100); Total Protein,Serum 9.1 g/dl (6.3-8.2)
[2023-03-10 02:46] LABS: Ammonia 145 umol/L (9-30); INR 1.23 (0.9-1.1); Prothrombin Time 13.1 seconds (10.1-12.5)
--- NOTE | 2023-03-10 02:51 | HMH.EDGENADL ---
Discharge Plan Disposition Patient Disposition: Xfer Short-Term Hosp Condition: Fair Chief Complaint: Neuro Symptoms/Deficit Prescriptions Prescriptions: No Action lisinopril 20 MG tablet 20 mg PO DAILY metformin 1,000 MG tablet 1,000 mg PO BIDWMEAL lactulose 20 gram/30 mL Solution 20 g PO BID insulin degludec [Tresiba FlexTouch U-100] 100 unit/mL (3 mL) insulin pen 40 unit SQ HS Trulicity 1.5 mg/0.5 mL pen injector 0.5 mg SQ WEEKLY Referrals Follow up/Referrals: Provider,Referral, MD [Primary Care Provider] - See instructions Clinical Impressions Clinical Impression: Cerebrovascular accident, Acute hepatic encephalopathy, Thrombocytopenia, Hyperammonemia Discharge ED Provider: Oscar Jackson General Adult HPI General Chief complaint: Neuro Symptoms/Deficit Stated complaint: AMS Time Seen by Provider: 03/10/23 02:19 Mode of Arrival: Family Vehicle Source of Information: Patient Limitations: Altered Mental Status History of Present Illness HPI narrative: 67yo M presents to the ER POV with local friend because he has not acting appropriately. Patient unable to provide any history. Patient is mildly combative and repeatedly curses at staff asking him basic questions Related Data Home Medications Medication Instructions Recorded Confirmed lisinopril 20 mg tablet 20 mg PO DAILY Hypertension 08/21/21 03/10/23 metformin 1,000 mg tablet 1,000 mg PO BIDWMEAL Diabetes 08/21/21 03/10/23 dulaglutide 1.5 mg/0.5 mL 0.5 mg SQ WEEKLY Diabetes 03/10/23 03/10/23 subcutaneous pen injector (Trulicity) insulin degludec 100 unit/mL (3 40 unit SQ HS Diabetes 03/10/23 03/10/23 mL) subcutaneous pen (Tresiba FlexTouch U-100 insulin) lactulose 20 gram/30 mL oral 20 g PO BID liver 03/10/23 03/10/23 solution Allergies Allergy/AdvReac Type Severity Reaction Status Date / Time Penicillins Allergy Verified 08/21/21 05:59 [facility] Disclaimer: The information contained in this section may have been updated after the patient was seen, as this information can be updated by other users. Social History Smoking Status: Current every day smoker tobacco type: cigarettes packs per day: 1 alcohol intake: never current occupational status: retired Travel in the last 8 weeks: None household members: none caffeine: No ROS Obtained: Yes Systems reviewed as appropriate & no additional complaints except as documented Physical Exam General General appearance: alert, appears intoxicated and other (Mildly combative) Comment: Smells of alcohol Head Head exam: atraumatic Eye Eye exam: Present normal appearance Neck Neck exam: Present full ROM and trachea midline Chest Chest inspection: Present symmetric chest wall rise Respiratory Respiratory exam: Present normal lung sounds bilaterally; Absent respiratory distress or accessory muscle use Cardiovascular Cardiovascular exam: Present regular rate, normal rhythm and normal heart sounds Abdominal Exam Abdominal exam: Present soft; Absent distention or tenderness Extremities Exam Extremities exam: Present full ROM and normal capillary refill; Absent tenderness Neurological Exam Neurological exam: Present alert; Absent oriented X3 Psychiatric Psychiatric exam: Present agitated Skin Skin exam: Present warm Medical Decision Making Medical Records Medical records reviewed: Yes I reviewed the patient's medical records. Scott Inquiry Pt receiving controlled substance: No Vital Signs: 03/10/23 02:18 Temperature 97.9 F Temperature Source Temporal Artery Scan Pulse Rate [Right] 98 H Respiratory Rate 21 Blood Pressure [Left Arm] 168/88 H Blood Pressure Mean [Left Arm] 114 Blood Pressure Source [Left Arm] Manual Cuff/ Auscultation 02 Sat by Pulse Oximetry 97 Oxygen Delivery Method Room Air Lab Data Lab results reviewed: Yes I reviewed the patient's lab results
--- NOTE | 2023-03-10 03:00 | ECG_ITS ---
APPROVED REPORT Exam: Resting ECG HR:107 bpm ECG Measurements Heart Rate 107 AXES GA 128 P 79 QRSd 87 QRS 59 QT 360 T 53 QTc 423 Conclusion SINUS TACHYCARDIA NONSPECIFIC T-WAVE ABNORMALITY ABNORMAL RHYTHM ECG UNCONFIRMED REPORT Electronically signed by : Getachew Ocasio MD 03/10/2023 15:29:52
[2023-03-10 03:03] LABS: Microscopic, Urine URINE MICROSCOPIC (MICROSCOPIC)
[2023-03-10 03:05] LABS: Appearance,Urine CLEAR (Clear); Blood, Urine 2+ (Negative); Color,Urine YELLOW (Yellow); Glucose,Urine (UA) Negative (Negative); Ketones,Urine TRACE (Negative); Leukocyte Esterase,Urine TRACE (Negative); Nitrate,Urine Negative (Negative); Protein,Urine 1+ (Negative); Urobilinogen,Urine >=8.0 EU/dl (0.2)
[2023-03-10 03:10] LABS: Ethyl Alcohol < 10 mg/dl (0-10)
--- NOTE | 2023-03-10 03:13 | PC.NURSE ---
on phone with hospitalist
--- NOTE | 2023-03-10 03:15 | PC.NURSE ---
Spoke with Shana at [facility], advised she would see what she could find and fax it to us
[2023-03-10 03:17] LABS: Coronavirus 19, PCR Not Detected (NotDetected); Influenza A, PCR Not Detected (NotDetected); Influenza B, PCR Not Detected (NotDetected)
[2023-03-10 03:34] LABS: Bilirubin,Urine 1+ (Negative)
--- NOTE | 2023-03-10 03:34 | PC.NURSE ---
spoke with vinnie at [facility] patient logistic about pt transfer. she states will call back once head of store operations MD calls back
[2023-03-10 03:35] LABS: Bacteria,Urine Trace /lpf; Barbiturates Screen,Urine Negative ng/ml (<200); Squamous Epithelial Cell,Urine Occasional #/hpf (0-5); WBC,Urine Occasional #/hpf (0-3)
[2023-03-10 03:36] LABS: Amphetamine/Metha Screen,Urine Negative ng/ml (<1000); Benzodiazepines Screen,Urine Negative ng/ml (<200)
[2023-03-10 03:37] LABS: Methadone Screen,Urine Negative ng/ml (<300)
[2023-03-10 03:38] LABS: Cannabinoid Screen,Urine Positive ng/ml (<50); Cocaine Screen,Urine Negative ng/ml (<300)
[2023-03-10 03:39] LABS: Opiate Screen,Urine Negative ng/ml (<300)
[2023-03-10 03:40] LABS: Phencyclidine Screen,Urine Negative ng/ml (<25)
--- NOTE | 2023-03-10 03:50 | PC.NURSE ---
Dr. Jackson [facility]
[2023-03-10 04:20] VITALS: BP 144/73; PULSE 98; RESP 17; TEMP 36.8; O2SAT 99
== END 2023-03-10 05:00 | disposition short-term general hospital (02) ==
PROVIDERS: Emergency Provider Family Medicine
DX: I63.9 Cerebral infarction, unspecified (principal); K76.82 Hepatic encephalopathy; D75.839 Thrombocytosis, unspecified; F17.210 Nicotine dependence, cigarettes, uncomplicated
CPT/HCPCS: 70450; 71045; 80053; 80305; 81001; 82140; 85025; 85610; 93005; 96372; 96374; 96375; 99291; C9803; U0003; U0005